=== PATIENT | male | born 1985 | race Hispanic/Latino ===

== ENCOUNTER 2016-09-30 09:23 | Emergency (ER) | payer SELFPAY ==
[2016-09-30 09:36] VITALS: BP 130/89
[2016-09-30] MEDS ORDERED: TETRACAINE 0.5% OU ONE (10:23)
[2016-09-30] MEDS ORDERED: FUL-GLO OP ONE (10:24)
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
[2016-09-30] MEDS ORDERED: MOTRIN PO ONE (12:49)
== END 2016-09-30 12:48 | disposition home or self-care (01) ==
LOC: ED 09:23
DX: S05.02XA Injury of conjunctiva and corneal abrasion without foreign body, left eye, initial encounter (principal); H57.12 Ocular pain, left eye; Y08.89XA Assault by other specified means, initial encounter; Y93.9 Activity, unspecified; Y92.89 Other specified places as the place of occurrence of the external cause; Y99.9 Unspecified external cause status; F17.200 Nicotine dependence, unspecified, uncomplicated